=== PATIENT | female | born 1940 | race Two or more races ===

== ENCOUNTER 2021-03-12 17:48 | Inpatient (IN) | payer MEDICARE, OTHER ==
[~2021-03-12] VITALS: Ht 152.4 cm; Wt 57.6 kg
[2021-03-12 18:20] LABS: HEMATOCRIT 35.3 % (31.2-41.9); MEAN CORPUSCULAR HEMOGLOBIN 30.3 uug (24.7-32.8); MEAN CORPUSCULAR VOLUME 89.3 fL (75.5-95.3); PLATELET COUNT (AUTO) 216 K/uL (179-408)
[2021-03-12 18:22] LABS: CARBON DIOXIDE 24 mmol/L (21-32); CHLORIDE 104 mmol/L (98-107); CREATININE 1.5 mg/dL (0.6-1.3); GLUCOSE 147 mg/dL (74-106); POTASSIUM 3.4 mmol/L (3.5-5.1); UREA NITROGEN, BLOOD 20 mg/dL (7-18)
[2021-03-12 18:28] LABS: ALANINE AMINOTRANSFERASE 20 U/L (14-59); ALKALINE PHOSPHATASE 103 U/L (50-136); ASPARTATE AMINOTRANSFERASE 14 U/L (15-37); BILIRUBIN,TOTAL 0.3 mg/dL (0.2-1.0); TOTAL PROTEIN, SERUM 7.1 g/dL (6.4-8.2)
--- NOTE | 2021-03-12 18:38 | NUR ---
PT IS IN ROOM #1B. DR GREENFIELD EVALUATED THE PT.
--- NOTE | 2021-03-12 19:00 | NUR ---
RECEIVED REPORT FROM LORNE VARELA. PT NOTED TO BE IN BED A/O X3, NO SOB OR LABORED BREATHING, DENIESNANY PAIN/DISCOMFORT
--- NOTE | 2021-03-12 19:35 | NUR ---
ASSISTED PT TO AMBULATE TO RESTROOM.
[2021-03-12] MEDS ORDERED: ASPIRIN 81 MG TAB.CHEW PO ONE (20:30)
[2021-03-12] MEDS ORDERED: ASPIRIN 81 MG TAB.CHEW ONE (20:44)
--- NOTE | 2021-03-12 21:59 | NUR ---
PT RESTING COMFORTABLY IN BED, WATCHING TV. CALM AND COOPERATIVE.
--- NOTE | 2021-03-13 00:52 | NUR ---
PT RESTING, WATCHING TV. DENIES ANY PAIN/DISCOMFORT.
--- NOTE | 2021-03-13 02:23 | NUR ---
PROVIDED PT WITH MEAL, WELL TOLERATED.
--- NOTE | 2021-03-13 03:11 | NUR ---
GAVE REPORT TO DUY.
--- NOTE | 2021-03-13 03:40 | NUR ---
Pt. admitted to tele , under care of Dr. Meredith Dx: chest pain Belongs List completed
--- NOTE | 2021-03-13 03:40 | NUR ---
Patient admitted to [facility] via wheelchair. Awake, alert and oriented x 3, Ethiopian speaking with a little Lithuanian only. Denies any pain/discomforts at this time. Not in respiratory distress. Routine admission care done. Plan of care initiated.
[2021-03-13] MEDS ORDERED: ONDANSETRON 4 MG/2 ML VIAL IV PRN (03:45)
[2021-03-13] MEDS ORDERED: ACETAMINOPHEN 325 MG TABLET PO PRN (03:45)
[2021-03-13 04:55] VITALS: BP 136/52
[2021-03-13] MEDS: PANTOPRAZOLE SODIUM 40 MG TABLET.DR PO SCH (06:39)
[2021-03-13 07:02] LABS: BILIRUBIN,TOTAL 0.4 mg/dL (0.2-1.0); CREATININE 0.9 mg/dL (0.6-1.3); PHOSPHOROUS 2.4 mg/dL (2.5-4.9); POTASSIUM 3.8 mmol/L (3.5-5.1)
[2021-03-13 07:04] LABS: THYROID STIMULATING HORMONE 0.051 mIU/mL (0.358-3.740)
[2021-03-13] MEDS ORDERED: FUROSEMIDE 40 MG/4 ML VIAL IV ONE (07:15)
[2021-03-13 07:17] LABS: HEMATOCRIT 36.4 % (31.2-41.9); MEAN CORPUSCULAR HEMOGLOBIN 30.4 uug (24.7-32.8); MEAN CORPUSCULAR VOLUME 88.9 fL (75.5-95.3); PLATELET COUNT (AUTO) 214 K/uL (179-408)
[2021-03-13] MEDS: ASPIRIN 81 MG TAB.CHEW PO SCH (08:07)
[2021-03-13 11:29] VITALS: BP 146/62
[2021-03-13 15:17] VITALS: BP 157/72
[2021-03-13] MEDS ORDERED: NEUTRA PHOS PACKET PO ONE (16:15)
--- NOTE | 2021-03-13 18:17 | NUR ---
Patient resting in bed. AOx3-4. On room air. No signs of acute distress. Patient compliant with medications and care. IV access patent and intact. Patient had episode of anxiety this morning, worrying about his son. Patient reassured about her safety here in the hospital. Patient was then contacted by daughter to assure her about her son. Patient calmed down after speaking with daughter. 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 Bed alarm on for safety. Call light within reach. Will endorse to incoming shift for continuity of care.
--- NOTE | 2021-03-13 19:40 | NUR ---
Received patient sitting up on the side of the bed eating dinner. Patient AAOx4. Mainly Czech speaking. In no apparent distress. Denies any pain or SOB. NSR on tele at 89/min. IV site on right AC intact and patent. Needs assessed and attended to. Safety measure initiated and call light within reached.
[2021-03-13] MEDS: ATORVASTATIN 40 MG TABLET PO SCH (20:09)
[2021-03-13] MEDS ORDERED: ISOS30TA86 PO (20:14)
[2021-03-13] MEDS ORDERED: METO25TA6 PO (20:14)
[2021-03-13] MEDS ORDERED: LOSA50TA39 PO (20:14)
[2021-03-13] MEDS ORDERED: ASPI81TA31 PO (20:14)
[2021-03-13] MEDS ORDERED: RANO500T3 PO (20:14)
[2021-03-13] MEDS ORDERED: ATOR20TA PO (20:17)
[2021-03-13 20:20] VITALS: BP 133/74
[2021-03-13] MEDS: METOPROLOL TARTRATE 25 MG TABLET PO SCH (21:57)
[2021-03-14 00:14] VITALS: BP 132/58
[2021-03-14 05:14] VITALS: BP 156/71
[2021-03-14] MEDS: PANTOPRAZOLE SODIUM 40 MG TABLET.DR PO SCH (06:06)
--- NOTE | 2021-03-14 06:15 | NUR ---
Patient AAOx4. In no apparent distress. Denies any chest pain or SOB. Sinus geri on tele with HR of 56/min. IV site on right AC intact and patent. Needs attended to and met. Safety measure maintained and call light within reached.
[2021-03-14 07:27] LABS: PHOSPHOROUS 3.3 mg/dL (2.5-4.9); POTASSIUM 3.7 mmol/L (3.5-5.1)
--- NOTE | 2021-03-14 08:00 | NUR ---
AWAKE ALERT AND VERBALLY RESPONSIVE SITING EDGE OF BED, ANXIOUS LOOKING. SEEN BY PHYSICAL THERAPIST FOR EXERCISES. SEE NOTES
[2021-03-14] MEDS: METOPROLOL TARTRATE 25 MG TABLET PO SCH ×2 (08:24→20:29)
[2021-03-14] MEDS: ASPIRIN 81 MG TAB.CHEW PO SCH (08:24)
[2021-03-14] MEDS: LOSARTAN POTASSIUM 50 MG TABLET PO SCH (08:24)
[2021-03-14] MEDS: RANOLAZINE 500 MG TAB.ER.12H PO SCH ×2 (08:24→20:27)
[2021-03-14] MEDS: ISOSORBIDE MONONITRATE 30 MG TAB.SR.24H PO SCH (08:25)
[2021-03-14] MEDS ORDERED: HYDR25TA4 PO (10:45)
[2021-03-14 12:00] VITALS: BP 142/52
--- NOTE | 2021-03-14 12:00 | NUR ---
RESTING COMFORTABLY IN BED, Kia BORDEN NOTIFIED OF CXR RESULTS, NO NEW ORDERS BUT CHANGE STATUS TO [facility]
[2021-03-14 15:57] VITALS: BP 114/45
--- NOTE | 2021-03-14 16:08 | NUR ---
DC PLANNING INITIATED WILL FOLLOW-UP IN AM
[2021-03-14] MEDS: ATORVASTATIN 40 MG TABLET PO SCH (20:27)
[2021-03-14 20:28] VITALS: BP 113/65
[2021-03-15 04:35] VITALS: BP 139/65
--- NOTE | 2021-03-15 05:35 | NUR ---
Patient rested well in between care; VSS; safety maintained; needs attended. continue to monitor; continue plan of care.
[2021-03-15] MEDS: PANTOPRAZOLE SODIUM 40 MG TABLET.DR PO SCH (06:06)
--- NOTE | 2021-03-15 07:45 | NUR ---
received awake in bed, watching tv. denies sob or pain. comfortable. call light in reach. safety precautions in place.
[2021-03-15] MEDS: METOPROLOL TARTRATE 25 MG TABLET PO SCH (08:39)
[2021-03-15] MEDS: RANOLAZINE 500 MG TAB.ER.12H PO SCH (08:40)
[2021-03-15] MEDS: ISOSORBIDE MONONITRATE 30 MG TAB.SR.24H PO SCH (08:40)
[2021-03-15] MEDS: ASPIRIN 81 MG TAB.CHEW PO SCH (08:40)
[2021-03-15] MEDS: LOSARTAN POTASSIUM 50 MG TABLET PO SCH (08:40)
[2021-03-15 12:00] VITALS: BP 117/51
--- NOTE | 2021-03-15 15:48 | NUR ---
pt is discharged to home. called dtr kaycee and she's aware and agreed. she's at patient's house waiting for her.
[2021-03-15 16:00] VITALS: BP 146/70
--- NOTE | 2021-03-15 16:50 | NUR ---
discharge follow up and medication instruction relayed to patient interpreted by staff. she verbalized understanding. belongings list done.
--- NOTE | 2021-03-15 18:00 | NUR ---
discharged to home in stable condition. iv removed. minimal bleeding noted. pt alert and oriented x4 no acute distress.
== END 2021-03-15 18:00 | disposition home or self-care (01) | DRG 291 ==
LOC: ER 17:50 → TELE3 23:00 → MEDSURG3 03-14 12:52
PROVIDERS: ADMIT Internal Medicine; ATTEND Internal Medicine
DX: I11.0 Hypertensive heart disease with heart failure (principal); I50.33 Acute on chronic diastolic (congestive) heart failure; N17.0 Acute kidney failure with tubular necrosis; E44.1 Mild protein-calorie malnutrition; I25.10 Atherosclerotic heart disease of native coronary artery without angina pectoris; Z95.5 Presence of coronary angioplasty implant and graft; E05.90 Thyrotoxicosis, unspecified without thyrotoxic crisis or storm; E78.5 Hyperlipidemia, unspecified; Z20.822 Contact with and (suspected) exposure to COVID-19; F41.9 Anxiety disorder, unspecified
CPT/HCPCS: 36415; 70030-TC; 71045; 83550; 83735; 84100; 84443; 85025; 93005; 93307; 97161; A4663; G0378; J1940

== ENCOUNTER 2024-03-08 12:56 | Emergency (ER) | payer MEDICARE, OTHER ==
[~2024-03-08] VITALS: Ht 157.5 cm; Wt 54.4 kg
[~2024-03-08 12:56] MED LIST: ASPI81TA31 PO; HYDR25TA4 PO; ISOS30TA86 PO; METO25TA6 PO; RANO500T3 PO
[2024-03-08] MEDS: IV NORMAL SALINE 1000 ML BAG IV ONE (13:31)
[2024-03-08 13:34] LABS: BASOPHILS # (AUTO) 0.1 K/UL (0.0-0.2); BASOPHILS % (AUTO) 0.9 % (0.0-2.0); EOSINOPHILS # (AUTO) 0.3 K/uL (0.0-0.7); EOSINOPHILS % (AUTO) 3.9 % (0.0-7.0); HEMATOCRIT 33.4 % (31.2-41.9); HEMOGLOBIN 11.6 g/dL (10.9-14.3); LYMPHOCYTES # (AUTO) 2.5 K/uL (0.8-4.8); LYMPHOCYTES % (AUTO) 36.5 % (20.5-51.5); MEAN CORPUSCULAR HEMOGLOBIN 31.2 uug (24.7-32.8); MEAN CORPUSCULAR HGB CONC 35 g/dL (32.3-35.6); MEAN CORPUSCULAR VOLUME 90.1 fL (75.5-95.3); MONOCYTES # (AUTO) 0.6 K/uL (0.1-1.30); MONOCYTES % (AUTO) 8.4 % (0.0-11.0); NEUTROPHILS # (AUTO) 3.5 K/uL (1.8-8.9); NEUTROPHILS % (AUTO) 50.3 % (38.5-71.5); PLATELET COUNT (AUTO) 224 K/uL (179-408); RED BLOOD CELL COUNT(AUTO) 3.71 MIL/uL (3.63-4.92); RED CELL DISTRIBUTION WIDTH 13.9 % (12.3-17.7)
[2024-03-08 13:39] LABS: DIFFERENTIAL COMMENT 1
[2024-03-08 13:44] LABS: CALCIUM 9.1 mg/dL (8.5-10.1); CARBON DIOXIDE 25 mmol/L (21-32); CHLORIDE 107 mmol/L (98-107); CREATININE 1.1 mg/dL (0.6-1.3); GLUCOSE 112 mg/dL (74-106); POTASSIUM 3.6 mmol/L (3.5-5.1); SODIUM SERUM 143 mmol/L (136-145); UREA NITROGEN, BLOOD 18 mg/dL (7-18)
[2024-03-08 13:53] LABS: ALANINE AMINOTRANSFERASE 20 U/L (14-59); ALBUMIN 3.2 g/dL (3.4-5.0); ALKALINE PHOSPHATASE 118 U/L (50-136); ASPARTATE AMINOTRANSFERASE 5 U/L (15-37); BILIRUBIN,DIRECT 0.1 mg/dL (0.0-0.2); BILIRUBIN,TOTAL 0.3 mg/dL (0.2-1.0); TOTAL PROTEIN, SERUM 6.8 g/dL (6.4-8.2)
[2024-03-08] MEDS ORDERED: LOSA100T31 PO ×2 (14:32→14:46)
[2024-03-08] MEDS ORDERED: RANO500T6 PO (14:32)
[2024-03-08] MEDS ORDERED: ATOR40TA PO (14:32)
[2024-03-08] MEDS ORDERED: ASPI-1420 PO (14:32)
[2024-03-08] MEDS ORDERED: RANO500T3 PO (14:46)
[2024-03-08] MEDS ORDERED: LEVO25TA9 PO (14:46)
[2024-03-08] MEDS ORDERED: METO25TA6 PO (14:46)
[2024-03-08] MEDS ORDERED: ISOS30TA86 PO (14:46)
[2024-03-08 16:23] VITALS: BP 138/71; TEMP 98; O2SAT 99
== END 2024-03-08 16:00 | disposition home or self-care (01) ==
LOC: ER 12:56
DX: R06.02 Shortness of breath (principal); Z76.0 Encounter for issue of repeat prescription; E78.5 Hyperlipidemia, unspecified; F41.9 Anxiety disorder, unspecified; Z79.82 Long term (current) use of aspirin; Z79.890 Hormone replacement therapy; Z79.899 Other long term (current) drug therapy; Z60.2 Problems related to living alone; Z95.5 Presence of coronary angioplasty implant and graft
CPT/HCPCS: 99284; 96360; 80076; 80048; 84443; 85025; 84484; 36415; 93005; J7040; A4606; A4663